=== PATIENT | male | born 1990 | race American Indian/Alaskan Native ===

== ENCOUNTER 2017-10-20 15:52 | Emergency (ER) | payer OTHER ==
--- NOTE | 2017-10-20 22:03 | Emergency Department Report ---
ED Male HPI - General Chief complaint: Urogenital-Male Stated complaint: POSS STD Time Seen by Provider: 10/20/17 21:27 Source: patient Mode of arrival: Ambulatory Limitations: No Limitations - History of Present Illness Initial comments: 27-year-old male past medical history none presents with complaint of exposure to gonorrhea Chlamydia and bacterial vaginosis. States his sex partner was treated 2 days ago for these things and informed him that he should be treated as well. Patient is asymptomatic denies penile discharge genitourinary lesions nausea vomiting or abdominal pain. Denies history of STDs. Improves with: none Worsens with: none denies other symptoms - Related Data Previous Rx's Medication Instructions Recorded Last Taken Type metroNIDAZOLE [Metronidazole] 500 mg PO ONCE #4 tablet 10/20/17 Unknown Rx Allergies Allergy/AdvReac Type Severity Reaction Status Date / Time No Known Allergies Allergy Unverified 10/20/17 15:59 ED Review of Systems ROS: Stated complaint: POSS STD Other details as noted in HPI Constitutional: denies: chills, fever Eyes: denies: eye pain, eye discharge, vision change ENT: denies: ear pain, throat pain Respiratory: denies: cough, shortness of breath, wheezing Cardiovascular: denies: chest pain, palpitations Endocrine: no symptoms reported Gastrointestinal: denies: abdominal pain, nausea, diarrhea Genitourinary: denies: urgency, dysuria Musculoskeletal: denies: back pain, joint swelling, arthralgia Skin: denies: rash, lesions Neurological: denies: headache, weakness, paresthesias Psychiatric: denies: anxiety, depression Hematological/Lymphatic: denies: easy bleeding, easy bruising ED Past Medical Hx - Past Medical History Previous Medical History?: No - Surgical History Past Surgical History?: No - Social History Smoking Status: Current Every Day Smoker Substance Use Type: Marijuana - Medications Home Medications: Home Medications Medication Instructions Recorded Confirmed Last Taken Type metroNIDAZOLE [Metronidazole] 500 mg PO ONCE #4 tablet 10/20/17 Unknown Rx ED Physical Exam - General Limitations: No Limitations General appearance: alert, in no apparent distress - Head Head exam: Present: atraumatic, normocephalic - Eye Eye exam: Present: normal appearance, PERRL, EOMI - ENT ENT exam: Present: mucous membranes moist - Neck Neck exam: Present: normal inspection - Respiratory Respiratory exam: Present: normal lung sounds bilaterally. Absent: respiratory distress - Cardiovascular Cardiovascular Exam: Present: regular rate, normal rhythm. Absent: systolic murmur, diastolic murmur, rubs, gallop - GI/Abdominal GI/Abdominal exam: Present: soft, normal bowel sounds - Rectal Rectal exam: Present: deferred - Extremities Exam Extremities exam: Present: normal inspection - Back Exam Back exam: Present: normal inspection - Neurological Exam Neurological exam: Present: alert, oriented X3, CN II-XII intact, normal gait - Psychiatric Psychiatric exam: Present: normal affect, normal mood - Skin Skin exam: Present: warm, dry, intact, normal color. Absent: rash ED Course Vital Signs 10/20/17 15:59 Temperature 98.2 F Pulse Rate 66 Respiratory 15 Rate Blood Pressure 119/41 O2 Sat by Pulse 99 Oximetry ED Medical Decision Making - Medical Decision Making A/P: exposure to chlamydia, gonorrhea and BV 1-patient states he was informed by his sex partner that he was exposed to be the chlamydia and gonorrhea will treat empirically with azithromycin ceftriaxone and metronidazole 2-pt is asymptomatic 3-f/u with PMD Critical care attestation.: If time is entered above; I have spent that time in minutes in the direct care of this critically ill patient, excluding procedure time. ED Disposition Clinical Impression: Exposure to STD Disposition: DC-01 TO HOME OR SELFCARE Is pt being admited?: No Does the pt Need Aspirin: No Condition: Stable Instructions: Sexually Transmitted Diseases (ED), Safe Sex (ED) Prescriptions: metroNIDAZOLE [Metronidazole] 500 mg PO ONCE #4 tablet Referrals: [facility] [Outside] - 3-5 Days [facility] [Outside] - 3-5 Days Time of Disposition: 22:18
[2017-10-20] MEDS ORDERED: ZITHROMAX PO ONE (22:16)
[2017-10-20] MEDS ORDERED: ROCEPHIN IM ONE (22:16)
[2017-10-20] MEDS ORDERED: XYLOCAINE 1% MPF 5 mL INFILTRATI ONE (22:16)
[2017-10-20] MEDS ORDERED: ROCEPHIN ONE (22:19)
[2017-10-20] MEDS ORDERED: XYLOCAINE 1% MPF 5 mL ONE (22:19)
[2017-10-20] MEDS ORDERED: ZITHROMAX ONE (22:19)
[2017-10-20 23:21] VITALS: BP 140/71
== END 2017-10-20 23:00 | disposition home or self-care (01) ==
LOC: ED 15:52
DX: Z20.2 Contact with and (suspected) exposure to infections with a predominantly sexual mode of transmission (principal); F17.200 Nicotine dependence, unspecified, uncomplicated; F12.10 Cannabis abuse, uncomplicated
CPT/HCPCS: 87591; 96372; 99282; J0696